=== PATIENT | female | born 1975 | race Caucasian/White ===

== ENCOUNTER → 2016-05-25 | Outpatient (CLI) | payer SELFPAY ==
[2016-05-25 12:11] LABS: BASOPHILS % (AUTO) 0.5 % (0.2-1.0); EOSINOPHILS # (AUTO) 0.1 x10^3/uL (0.0-0.2); EOSINOPHILS % (AUTO) 1.6 % (0.9-2.9); HEMATOCRIT 35.5 % (36.0-47.0); LYMPHOCYTES # (AUTO) 1.8 X10^3/uL (1.3-2.9); LYMPHOCYTES % (AUTO) 35.7 % (21.0-51.0); MEAN CORPUSCULAR HGB CONC 33.8 g/dL (33.0-35.0); MEAN CORPUSCULAR VOLUME 82.8 fL (80.0-100.0); MEAN PLATELET VOLUME 8.3 fL (7.4-11.0); MONOCYTES # (AUTO) 0.4 x10^3/uL (0.3-0.8); MONOCYTES % (AUTO) 7.8 % (0.0-13.0); NEUTROPHILS # (AUTO) 2.7 x10^3/uL (2.2-4.8); NEUTROPHILS % (AUTO) 54.4 % (42.0-75.0); PLATELET COUNT 228 X10^3/uL (150.0-450.0); RED BLOOD COUNT 4.29 X10^6/uL (3.5-5.4); RED CELL DISTRIBUTION WIDTH 13.9 % (11.6-16.5)
[2016-05-25 12:12] LABS: BILIRUBIN,URINE NEGATIVE (NEGATIVE); BLOOD/HEMOGLOBIN,URINE NEGATIVE (NEGATIVE); GLUCOSE, URINE NEGATIVE (NEGATIVE); KETONES,URINE NEGATIVE (NEGATIVE); LEUKOCYTE ESTERASE ,URINE NEGATIVE (NEGATIVE); NITRITES,URINE NEGATIVE (NEGATIVE); PROTEIN,URINE NEGATIVE (NEGATIVE); UROBILINOGEN,URINE NORMAL (NORMAL)
[2016-05-25 12:20] LABS: BLOOD UREA NITROGEN 8 mg/dL (7-18); CALCIUM 8.5 mg/dL (8.5-10.1); CARBON DIOXIDE 28.1 mmol/L (21-32); CHLORIDE 108 mmol/L (98-107); CREATININE 0.72 mg/dL (0.55-1.02); GLUCOSE 83 mg/dL (65-99); SODIUM 142 mmol/L (136-145); eGFR BLACK RACES > 60 (>60); eGFR NON BLACK RACES > 60 (>60)
[2016-05-25 12:29] LABS: APPEARANCE,URINE CLEAR (CLEAR); BACTERIA,URINE NEGATIVE /HPF (NEGATIVE); COLOR,URINE PALE YELLOW (YELLOW); RBC,URINE NONE SEEN /HPF (NEGATIVE); SQUAMOUS EPITHELIAL CELL,UR RARE /HPF (NEGATIVE)
[2016-05-25 12:36] LABS: SERUM PREGNANCY TEST, QUAL NEGATIVE <10 mIU/mL
--- NOTE | 2016-05-25 12:43 | RAD ---
PA and lateral Chest Indication: Preoperative evaluation for hysterectomy Comparison: None available Findings: The trachea is midline. The cardiac silhouette is unremarkable. The lungs are clear without focal infiltrate or effusion. Biconvex curvature of the thoracic and lumbar spine is noted. IMPRESSION: 1. No acute cardiopulmonary abnormality. Reported By:
== END ==
LOC: LAB 11:08
PROVIDERS: ATTEND Specialist
DX: Z01.818 Encounter for other preprocedural examination (principal); Z01.810 Encounter for preprocedural cardiovascular examination; Z01.811 Encounter for preprocedural respiratory examination; R10.2 Pelvic and perineal pain; N92.5 Other specified irregular menstruation; N94.6 Dysmenorrhea, unspecified
CPT/HCPCS: 36415; 71020; 80048; 81001; 84703; 85025; 85610; 85730; 86850; 86900; 86901; 87086; 93005; 93010

== ENCOUNTER 2016-05-30 06:28 | Inpatient (IN) | payer SELFPAY ==
[2016-05-30] MEDS ORDERED: NS 50 ML IV + SPIKE MINIBAG* 50 ML IV ONE (06:44)
[2016-05-30] MEDS ORDERED: ANCEF VIAL 1 GM ONE (06:45)
[2016-05-30] MEDS ORDERED: D5 1/2 NS 1000 ML 1,000 ML IV ONE (06:45)
[2016-05-30] MEDS ORDERED: D5 1/2 NS 1000 ML 1,000 ML IV SCH ×2 (06:46→14:46)
[2016-05-30] MEDS ORDERED: ANCEF VIAL 1 GM 1 GM in NS 50 ML IV + SPIKE MINIBAG* 50 ML IV PRN (06:46)
[2016-05-30 07:05] VITALS: BMI 24.7
[2016-05-30] MEDS ORDERED: DILAUDID INJ ONE ×2 (07:06→09:30)
[2016-05-30] MEDS ORDERED: FENTANYL INJ 100 mcg ONE (07:06)
[2016-05-30] MEDS ORDERED: NS IRRIGATION 1000 ML 1,000 ML IR ONE ×2 (07:43→08:39)
[2016-05-30 07:56] LABS: BILIRUBIN,URINE NEGATIVE (NEGATIVE); BLOOD/HEMOGLOBIN,URINE NEGATIVE (NEGATIVE); GLUCOSE, URINE NEGATIVE (NEGATIVE); KETONES,URINE NEGATIVE (NEGATIVE); LEUKOCYTE ESTERASE ,URINE NEGATIVE (NEGATIVE); NITRITES,URINE NEGATIVE (NEGATIVE); PROTEIN,URINE NEGATIVE (NEGATIVE); UROBILINOGEN,URINE NORMAL (NORMAL)
[2016-05-30 08:06] LABS: APPEARANCE,URINE CLEAR (CLEAR); BACTERIA,URINE NEGATIVE /HPF (NEGATIVE); COLOR,URINE PALE YELLOW (YELLOW); RBC,URINE 0 /HPF (NEGATIVE); SQUAMOUS EPITHELIAL CELL,UR RARE /HPF (NEGATIVE)
[2016-05-30] MEDS ORDERED: LR 1000 ML IV 1,000 ML IV ONE (08:35)
[2016-05-30] MEDS: DILAUDID INJ IVP PRN ×2 (09:07→09:20)
[2016-05-30] MEDS ORDERED: MORPHINE SULFATE PCA 30 MG IVP PRN (09:11)
[2016-05-30] MEDS ORDERED: PHENERGAN INJ 25 MG ONE (09:12)
[2016-05-30] MEDS ORDERED: BENADRYL INJ 50 MG VIAL IVP PRN ×2 (09:15→09:37)
[2016-05-30] MEDS ORDERED: REGLAN INJ 10 MG VIAL IVP PRN (09:15)
[2016-05-30] MEDS ORDERED: PHENERGAN INJ 25 MG IVP PRN (09:15)
[2016-05-30] MEDS ORDERED: ZOFRAN INJ 4 MG VIAL IVP PRN ×2 (09:15→09:37)
[2016-05-30] MEDS ORDERED: DILAUDID INJ IVP ONE (09:30)
[2016-05-30] MEDS ORDERED: TORADOL 30 MG VIAL IVP PRN (09:37)
[2016-05-30] MEDS: D5 1/2 NS 1000 ML 1,000 ML IV SCH ×2 (10:23→21:45)
[2016-05-30] MEDS: MORPHINE SULFATE PCA 30 MG IVP PRN ×2 (10:24→14:27)
[2016-05-30] MEDS ORDERED: NEOSTIGMINE INJ ONE (13:05)
[2016-05-30] MEDS ORDERED: ULTANE GAS IN ONE (13:05)
[2016-05-30] MEDS ORDERED: ROBINUL ONE (13:05)
[2016-05-30] MEDS ORDERED: ZOFRAN INJ 4 MG VIAL ONE (13:05)
[2016-05-30] MEDS ORDERED: VERSED ONE (13:05)
[2016-05-30] MEDS ORDERED: DIPRIVAN VIAL ONE (13:05)
[2016-05-30] MEDS ORDERED: DYLOJECT INJ ONE (13:05)
[2016-05-30] MEDS ORDERED: QUELICIN (OR ANECTINE) ONE (13:05)
[2016-05-30] MEDS ORDERED: NORCURON INJ 10 MG VIAL ONE (13:05)
[2016-05-31] MEDS: MORPHINE SULFATE PCA 30 MG IVP PRN (02:00)
[2016-05-31] MEDS: D5 1/2 NS 1000 ML 1,000 ML IV SCH ×3 (02:06→14:02)
[2016-05-31 05:28] LABS: BLOOD UREA NITROGEN 4 mg/dL (7-18); CALCIUM 7.6 mg/dL (8.5-10.1); CARBON DIOXIDE 25.9 mmol/L (21-32); CHLORIDE 104 mmol/L (98-107); COR NA(FOR HYPERGLY) 140 mmol/L (136-145); CREATININE 0.61 mg/dL (0.55-1.02); GLUCOSE 129 mg/dL (65-99); SODIUM 139 mmol/L (136-145); eGFR BLACK RACES > 60 (>60); eGFR NON BLACK RACES > 60 (>60)
[2016-05-31 05:36] LABS: BASOPHILS % (AUTO) 0.1 % (0.2-1.0); EOSINOPHILS % (AUTO) 0.1 % (0.9-2.9); HEMATOCRIT 32.2 % (36.0-47.0); HEMOGLOBIN 10.9 g/dL (12.0-16.0); LYMPHOCYTES # (AUTO) 1.8 X10^3/uL (1.3-2.9); LYMPHOCYTES % (AUTO) 21.7 % (21.0-51.0); MEAN CORPUSCULAR HEMOGLOBIN 28.3 pg (27.0-34.0); MEAN CORPUSCULAR HGB CONC 33.7 g/dL (33.0-35.0); MEAN CORPUSCULAR VOLUME 83.9 fL (80.0-100.0); MEAN PLATELET VOLUME 8.4 fL (7.4-11.0); MONOCYTES # (AUTO) 0.7 x10^3/uL (0.3-0.8); MONOCYTES % (AUTO) 8.4 % (0.0-13.0); NEUTROPHILS # (AUTO) 5.6 x10^3/uL (2.2-4.8); NEUTROPHILS % (AUTO) 69.7 % (42.0-75.0); PLATELET COUNT 193 X10^3/uL (150.0-450.0); RED BLOOD COUNT 3.84 X10^6/uL (3.5-5.4); RED CELL DISTRIBUTION WIDTH 14.4 % (11.6-16.5); WHITE BLOOD COUNT 8.1 X10^3/uL (3.6-10.0)
[2016-05-31] MEDS: COLACE CAP 100 MG PO SCH ×2 (09:16→20:09)
[2016-05-31] MEDS: ESTRACE PO SCH (09:16)
[2016-05-31] MEDS: MOTRIN TAB 800 MG PO PRN ×2 (09:18→17:44)
[2016-05-31] MEDS: PERCOCET TAB 5/325 MG PO PRN ×3 (10:41→20:10)
[2016-05-31] MEDS: BACTROBAN OINT TOP SCH ×2 (13:15→22:04)
[2016-06-01] MEDS: PERCOCET TAB 5/325 MG PO PRN (04:19)
[2016-06-01] MEDS: BACTROBAN OINT TOP SCH (05:27)
[2016-06-01 08:42] VITALS: BP 105/51
[2016-06-01] MEDS: COLACE CAP 100 MG PO SCH (09:14)
[2016-06-01] MEDS: ESTRACE PO SCH (09:14)
[2016-06-01] MEDS: MOTRIN TAB 800 MG PO PRN (09:18)
== END 2016-06-01 09:38 | disposition home or self-care (01) | DRG 743 ==
LOC: MED/SURG 06:28
PROVIDERS: ADMIT Specialist; ATTEND Specialist
PROC: 0UTC0ZZ Resection of Cervix, Open Approach (ICD-10-PCS; 2016-05-30)
PROC: 0UT20ZZ Resection of Bilateral Ovaries, Open Approach (ICD-10-PCS; 2016-05-30)
PROC: 0UT70ZZ Resection of Bilateral Fallopian Tubes, Open Approach (ICD-10-PCS; 2016-05-30)
PROC: 0UT90ZZ Resection of Uterus, Open Approach (ICD-10-PCS; principal; 2016-05-30 07:30)
DX: D25.9 Leiomyoma of uterus, unspecified (principal); N92.5 Other specified irregular menstruation; N94.6 Dysmenorrhea, unspecified; R10.2 Pelvic and perineal pain
CPT/HCPCS: 36415; 80048; 81001; 85025; 94760; A4216; A4222; J0330; J0690; J1170; J2250; J2271; J2405; J2550; J2710; J3010; J3490; J7042; J7120